=== PATIENT | female | born 1950 | race Caucasian/White ===

== ENCOUNTER 2017-04-07 19:07 | Emergency (ER) | payer MEDICARE, OTHER ==
[~2017-04-07] VITALS: Ht 154.9 cm; Wt 111.4 kg
[~2017-04-07 19:07] MED LIST: /ASCO250TA PO; /AUGM875TA OR; /CELE20CA PO; /LINE60TA PO; /MOM400 PO; /PANT40TA PO; /PREG50CA PO; /WARF25TA OR; ACET65TA OR; ALLO300T OR; ANUSHCSU PR; ASPI81CH3 PO; ASPIRIN PO; ATEN50TA2 OR; BISA10SU30 PR; BISAC5TA PO; CALC600T7 PO; COLA100C2 OR; COLA50CA3 PO; CYCLOBEN PO; FISH1000 PO; FISHCAP PO; KLOR CON PO; LOZOL PO; META48.54 PO; METAXALONE PO; MULTIVIT PO; NORCOBULK PO; OXYCODONE PO; PERC5TAB8 OR; PERC7.5T12 PO; SIMV10TA2 OR; SIMVPOW2 PO; TYLE325T5 PO; VALI5TAB PO; VITACRY3 PO; VITAMIN D; VITAMIN D PO; ZYLO300T OR; [UNRECOGNIZED DRUG - OTHER] PO; [UNRECOGNIZED DRUG - OTHER] PO
[2017-04-07] MEDS ORDERED: ATOR1TAB21 (19:26)
[2017-04-07] MEDS ORDERED: CYMB1CAP4 PO (19:26)
[2017-04-07] MEDS ORDERED: INDA125TA (19:26)
[2017-04-07] MEDS ORDERED: AMOX500C PO (19:26)
[2017-04-07] MEDS ORDERED: BACL10TA2 PO (19:26)
[2017-04-07] MEDS ORDERED: VESI10TA2 (19:26)
[2017-04-07] MEDS ORDERED: NITR50CA2 (19:26)
[2017-04-07 23:01] VITALS: BP 132/68
--- NOTE | 2017-04-08 08:21 | REP ---
Clinical: Pain. Technique: AP view of the pelvis with neutral and frog lateral views of the left hip. Findings: The patient is status post bilateral hip replacement. Age-related changes to the pelvis noted including enthesopathy and osteophyte formation along the iliac wings and spines. Orthopedic hardware appears normal in position. No acute fracture or dislocation is appreciated. Impression: Age-related degenerative changes. No acute fracture or dislocation. Signed by Bird Rashid MD 04/08/2017 08:12 A
== END 2017-04-07 23:02 | disposition home or self-care (01) ==
LOC: M ED 19:07
DX: M25.552 Pain in left hip (principal); I10 Essential (primary) hypertension; E78.00 Pure hypercholesterolemia, unspecified; Z79.2 Long term (current) use of antibiotics; Z79.899 Other long term (current) drug therapy; Z88.2 Allergy status to sulfonamides; Z88.1 Allergy status to other antibiotic agents; Z87.891 Personal history of nicotine dependence

== ENCOUNTER → 2018-10-14 | Outpatient (CLI) | payer MEDICARE, OTHER ==
[~2018-10-14] MED LIST changes: -/CELE20CA PO; -/LINE60TA PO; -/MOM400 PO; -/PANT40TA PO; -/PREG50CA PO; -/WARF25TA OR; +AMOX500C PO; -ANUSHCSU PR; +ATOR1TAB21; +BACL10TA2 PO; +CELE1CAP4 PO; +COUM1TAB18 OR; +CYMB1CAP4 PO; +HYDR1SUP3 PR; +INDA125TA; +LYRI50CA PO; +MILK10SU PO; +NITR50CA34; +PROT1TAB2 PO; +VESI10TA2; +ZYVO100T PO
--- NOTE | 2018-10-14 09:11 | REP ---
Clinical: Preoperative assessment . Comparison: 10/02/2011 . Technique: PA and lateral. Findings: The mediastinum and cardiac silhouette are normal. The lung hernandez are clear and without acute consolidation, effusion, or pneumothorax. The skeletal structures are intact and normal. Impression: 1. No acute cardiopulmonary process. Electronically Signed by Bird Rashid MD 10/14/2018 09:03 A
[2018-10-14 09:34] LABS: BLOOD UREA NITROGEN 17 MG/DL (7-18); CARBON DIOXIDE LEVEL 33 MEQ/L (21-32); CHLORIDE LEVEL 103 MEQ/L (98-107); CREATININE FOR GFR 0.76 MG/DL (0.55-1.30); GLOMERULAR FILTRATION RATE > 60.0 (>45); GLUCOSE, FASTING 113 MG/DL (70-100); POTASSIUM SERUM 4.2 MEQ/L (3.5-5.1); SODIUM LEVEL 141 MEQ/L (136-145)
--- NOTE | 2018-10-14 12:35 | ECGEPIP ---
[facility] Test Date: 2018-10-14 Pat Name: LISA PIERRE Department: Room: - Gender: Female Digital Marketing Specialist: JOSE ROBERTO : 1950 Requested By: Frank Taylor Order Number: [id number] Reading MD: Edwina Marsh Measurements Intervals [place] Rate: 60 P: 18 MD: 154 QRS: 6 QRSD: 98 T: 13 QT: 398 QTc: 398 Interpretive Statements SINUS RHYTHM NORMAL Electronically Signed on 10-14-2018 12:35:19 EDT by Edwina Marsh
== END ==
LOC: M LAB 08:20
PROVIDERS: ATTEND Orthopaedic Surgery
DX: Z01.818 Encounter for other preprocedural examination (principal); M48.02 Spinal stenosis, cervical region; M54.12 Radiculopathy, cervical region

== ENCOUNTER → 2018-11-04 | Outpatient (CLI) | payer MEDICARE, OTHER ==
[~2018-11-04] MED LIST changes: +ALLO10TA PO; +ASPI81TA85 PO; +ATEN50TA2 PO; -ATOR1TAB21; +ATOR1TAB21 PO; +CVS500CA5 PO; -INDA125TA; +INDA125TA PO; +LYRI150C PO; +MAGN250T7 PO; +MULTCAP PO; +PERC5TAB12 PO; +PURE500C5 PO; -VESI10TA2; +VESI10TA2 PO
--- NOTE | 2018-11-08 08:16 | SLEEPCENT ---
DATE OF PROCEDURE: 11/04/2018 ORDERED BY: MENG Holt Nocturnal polysomnography was performed for evaluation of sleep physiology in this patient with a history of excessive somnolence and nonrestorative sleep who has comorbidities of diabetes and hypertension. 7 hours and 21 minutes of data were reviewed. There were 356 minutes of sleep identified. Sleep latency was prolonged 41.5 minutes. Rapid eye movement (REM) latency was more so prolonged at 337 minutes. Sleep architecture showed poor progression with only 1 REM cycle late in the study. Overall sleep efficiency was 82.4%. The electrocardiogram showed a sinus rhythm with an average heart rate of 60 beats per minute. Rate ranged 50-80. Electroencephalogram (EEG) showed mild coarsening in background, no focal events were identified. There was normal waveforms for awake and sleep. There were 79 respiratory events identified of 10 seconds in duration or greater for an apnea-hypopnea index of 13.3. The events were obstructive, not exclusive to sleep stage, more frequent in the supine posture. Arousals from respiratory events occurred 2 times per hour and oxygen desaturations were seen into the upper 80s. There was some minimal background limb EMG activity and snoring was noted over the entire time of the test. IMPRESSION: Obstructive sleep apnea syndrome (G47.33). Apnea-hypopnea index 13.3. RECOMMENDATION: The patient should be encouraged to return to the sleep disorder center for pressure therapy. In the interim, alcohol and sedative avoidance should be practiced and caution exercised during the operation of motor vehicles.
== END ==
LOC: M SLEEP 19:34
PROVIDERS: ATTEND Nurse Practitioner Family
DX: R40.0 Somnolence (principal)

== ENCOUNTER → 2018-11-12 | Outpatient (CLI) | payer MEDICARE, OTHER ==
--- NOTE | 2018-11-15 15:33 | SLEEPCENT ---
DATE OF PROCEDURE: 11/12/2018 ORDERED BY: MENG Holt Nocturnal polysomnography was performed for the titration of pressure therapy in this patient with obstructive sleep apnea syndrome, apnea-hypopnea index of 13.3. For testing, a ResMed Jennifer View full face mask of small size was used, 4 cm of water pressure were applied to the circuit and the lights were extinguished. 7 hours and 47 minutes of data were reviewed. There 280 minutes of sleep identified. Sleep latency was quite prolonged at 136 minuts. REM latency more so prolonged at 287 minutes. Sleep architecture showed poor progression with fragmentation early in the study. Sleep did improve later in the test on optimal pressure therapy. Overall sleep efficiency 61.3% and there was one REM episode late in the test. The electrocardiogram showed a sinus rhythm with an average heart rate of 56 beats per minute. EEG showed normal waveforms for awake and sleep stages. Optimal pressure for palliation of obstructive events was found to be 11 cm of water. There were some activity in the limb leads, particularly early in the study. Limb movement arousal index was 8.1. IMPRESSION Obstructive sleep apnea syndrome (7.33) RECOMMENDATIONS Nightly use of pressure therapy 11 cm of water.
== END ==
LOC: M SLEEP 20:00
PROVIDERS: ATTEND Nurse Practitioner Family
DX: G47.33 Obstructive sleep apnea (adult) (pediatric) (principal)

== ENCOUNTER 2019-01-05 07:16 | Inpatient (IN) | payer MEDICARE, OTHER ==
--- NOTE | 2018-12-27 17:44 | HPE ---
DATE OF ADMISSION: 01/05/2019 ATTENDING PHYSICIAN: Dr. Costello CHIEF COMPLAINT: Neck pain and pain radiating to her right upper extremity. HISTORY: This is a 68-year-old female patient with progressively worsening neck pain and pain radiating to mainly her right upper extremity. She has tried conservative management without improvement. She has had an MRI notable for significant spinal stenosis at 5-6 as well as at 4-5 and 6-7. She has elected for surgery for continued symptoms. She has consented by Dr. Costello for an anterior cervical decompression and fusion at C4-5, C5-6 and C6-7. Medical optimization Dr. Webb and also Dr. Brower from the pulmonary clinic. CURRENT MEDICATIONS: - allopurinol 300 mg one tablet once per day - atenolol 50 mg one tablet once per day - baclofen 10 mg once daily as needed - Cymbalta 20 mg one tablet once per day - indapamide 1.25 mg one tablet twice a day - Klor-Con 20 mEq one tablet twice a day - Lipitor 20 mg one tablet once per day - Lyrica 150 mg one tablet three times a day - VESIcare 10 mg one tablet once per day - aspirin 81 mg one tablet once per day, she will discontinue that 5 days prior to surgery - she takes qsby-ciz-mpwgenx cranberry, fish oil, magnesium, multivitamin, stool softeners and vitamins B, C and D She was counseled to avoid all aspirin and NSAIDs 7-10 days prior to surgery. ALLERGIES: Include SULFA medications, NSAIDs, walnuts, adhesives, and beeswax. MEDICAL CONDITIONS: Include cervical spinal stenosis that is symptomatic as well as Charcot foot, seasonal allergies, arthritis, benign essential tremor, carpal tunnel syndrome, diabetes, gout, hyperlipidemia, hypertension, lumbar radiculopathy, obesity, chronic urinary incontinence. PRIOR SURGERIES: Includes bilateral hip replacements, laminectomy, total hysterectomy, removal of her gallbladder, prior surgery with X-STOP procedure. SOCIAL HISTORY: She does not smoke. She does not use alcohol. She is retired. REVIEW OF SYSTEMS: Denies fevers or chills. Denies chest pain, shortness of breath or cough. Denies difficulty breathing. She has persistent neck pain and pain radiating to her right upper extremity. She has chronic urinary incontinence. Exam today reveals alert, well-nourished, well-developed, female patient. She ambulates with a normal gait. She does use a cane for ambulation due to a prior history of cauda equina syndrome. There is a positive Spurling's to the right upper extremity. Zuniga's is negative. Clonus is negative. Her mood and affect are appropriate. Neck is supple without adenopathy or JVD. The skin is intact. Lungs are clear to auscultation without rales or wheeze. Heart: Regular rate and rhythm. Abdomen: Bowel sounds are present. Current vital signs: Height 61 inches, weight 254 pounds, temperature 98, blood pressure 139/79, respirations 16, heart rate of 62. LABORATORY DATA: Hemoglobin of 13, glucose 113, BUN 17, creatinine 0.76, sodium 141, potassium 4.2. IMPRESSION: Symptomatic cervical spinal stenosis with right upper extremity radicular like symptoms. PLAN: She has consented for an anterior cervical decompression and fusion at C4-5, C5-6 and C6-[address] Costello with the use of VG2 grafts. CONSUELO
[~2019-01-05] VITALS: Ht 154.9 cm; Wt 115.2 kg
[2019-01-05] VITALS (9 sets, daily range): BP systolic 141–149; BP diastolic 69–74; O2SAT 93–94
[~2019-01-05 07:16] MED LIST changes: +B COTAB3 PO; +BACITRACIN PWD 50,000 UNITS VIAL As Ordered ONE; +CelecoXIB (CeleBREX) 100 MG CAP PO ONE; +D MANNOSE PO; +LIDOCAINE W/EPINEPHRINE 1% 20ML VIAL As Ordered ONE; +LR 1,000 ML IV ONE; +PERCOCET 5MG/325MG TAB PO ONE; +POTA20TA6 PO; +THROMBIN SOLN 20,000 UNITS KIT As Ordered ONE; +VITA30004 PO; +VITA500C19 PO; +ceFAZolin SOD 1 GM in D5W MINI-BAG PLUS 50 ML IV ONE; +methylPREDNISolone 500 MG VIAL (J2930) As Ordered ONE
[2019-01-05] MEDS ORDERED: VANCOMYCIN 1000 MG/20 ML VIAL (J3370) As Ordered ONE (08:48)
[2019-01-05] MEDS ORDERED: VANCOMYCIN HCL 1,000 MG, VIAL MATE ADAPTER 1 EACH in D5W 250 ML IV ONE (09:45)
[2019-01-05] MEDS ORDERED: MIDAZOLAM INJ 2 MG/2 ML VIAL (J2250) As Ordered ONE (09:46)
[2019-01-05] MEDS ORDERED: dexameTHASONE 4 MG/ML 1ML VIAL (J1100) As Ordered ONE (09:46)
[2019-01-05] MEDS ORDERED: PROPOFOL 200 MG/20 ML VIAL As Ordered ONE ×2 (09:46→14:35)
[2019-01-05] MEDS ORDERED: LIDOCAINE 2% INJ 100 MG/5 ML SDV (FOR ANES.) As Ordered ONE (09:46)
[2019-01-05] MEDS ORDERED: ONDANSETRON 4MG/2ML VIAL (J2405) As Ordered ONE (09:46)
[2019-01-05] MEDS ORDERED: ROCURONIUM BROMIDE 50 MG/5 ML VIAL As Ordered ONE ×2 (09:46→10:48)
[2019-01-05] MEDS ORDERED: fentaNYL 250 MCG/5 ML INJECTION (J3010) As Ordered ONE (09:46)
[2019-01-05] MEDS ORDERED: GLYCOPYRROLATE INJ 0.2 MG/ML 2 ML VIAL As Ordered ONE (10:37)
[2019-01-05] MEDS ORDERED: ePHEDrine SULFATE 25 MG/5 ML(5MG/ML) SYRINGE As Ordered ONE (11:18)
[2019-01-05] MEDS ORDERED: SUGAMMADEX SODIUM 500 MG/5 ML VIAL (BRIDION) As Ordered ONE (11:42)
--- NOTE | 2019-01-05 12:40 | REP ---
REASON: Anterior cervical discectomy. Single lateral portable view of the cervical spine was obtained in the operative suite during anterior cervical discectomy. There is a probe seen in the intervertebral disc space at the C4-5 level. Electronically Signed by Christiano Farooq DO 01/05/2019 03:42 P
--- NOTE | 2019-01-05 15:18 | CR.PDOC ---
General Date of Consultation: Jan 05, 2019 Referring Provider: Frank Costello MD Attending Physician: PA DE LA PAZ MD Consultation REASON FOR CONSULTATION/CHIEF COMPLAINT: [ medical management]. HISTORY OF PRESENT ILLNESS: [68 years old female with past medical history of multiple medical problems including cervical spine spinous stenosis chocolate Cruzito energy arthritis. Benign essential tremors Coppertone syndrome, diabetes mellitus, gout, hyperlipidemia, hypertension, lumbar radiculopathy, obesity, chronic urinary incontinence was scheduled for anterior cervical decompression and fusion of C4-5, C5-6 and, C6-7. Will be called in for medical management. Patient offers no new complaints. The present time]. ALLERGIES: Please see below. HOME MEDICATIONS: Please see below. PAST MEDICAL HISTORY: Cervical spinal stenosis chocolate fluid seen allergies, arthritis, benign essential tremors Coppertone syndrome, diabetes mellitus, gout, hyperlipidemia, hypertension, lumbar radiculopathy, obesity, chronic urinary incontinence PAST SURGICAL HISTORY: Bilateral hip replacement, laminectomy, total hysterectomy, cholecystectomy FAMILY HISTORY: Father: [Noncontributory] Mother: [Noncontributory] Siblings: [Noncontributory] Children: [Noncontributory] Hereditary Diseases: [None] Unexpected deaths due to medical reasons: [None] SOCIAL HISTORY: Marital status and/or living arrangements: Children: Employment: [Not applicable] Tobacco use:[Never smoked] ETOH: [No] Illicit drug use: IV drug use: [No] Other relevant social factors: [None] REVIEW OF SYSTEMS: CONSTITUTIONAL: . HEENT: . CARDIOVASCULAR: [No chest pain, shortness of breath, palpitations, wheezing]. RESPIRATORY: [Wheezing, shortness of breath]. GENITOURINARY: [No dysuria, frequency]. MUSCULOSKELETAL: [No aches and pains]. GASTROINTESTINAL: [, No nausea, vomiting, diarrhea]. SKIN: [No rash]. NEUROLOGICAL: [Motor or focal sensory, weakness]. PSYCHIATRIC: [None]. ENDOCRINE: [No complaints. But history of diabetes]. HEMATOLOGIC/LYMPHATIC: [No complaints]. ALLERGIC/IMMUNOLOGIC: [No complaints]. PHYSICAL EXAMINATION: VITAL SIGNS: Please see below. GENERAL APPEARANCE: [Awake, alert, oriented, in no apparent distress]. HEENT: [PERRLA, XRT, muscle intact]. RESPIRATORY: [Clear to A&P]. CARDIOVASCULAR: [S1, S2, regular]. ABDOMEN: [, Soft, nontender, bowel sound present]. EXTREMITIES: [no Clubbing, cyanosis, edema]. NEUROLOGICAL: [Intact]. PSYCHIATRIC: [Normal]. LABORATORY DATA: Please see below. ASSESSMENT/PLAN: Status post anterior cervical decompression and fusion of C4-5, C5-6 and, C6-7 Hypertension Hyperlipidemia Urinary incontinence Benign essential tremor Gout Obesity Vital Signs/I&O Vital Signs Date Time Temp Pulse Resp B/P (MAP) Pulse Ox O2 Delivery O2 Flow Rate FiO2 01/05/19 08:44 20 01/05/19 08:32 96.8 60 144/77 (99) 97 Laboratory Data Labs 24H Laboratory Tests 2 01/05/19 08:12: Bedside Glucose (Misc Panel) 123H Allergies Coded Allergies: enalapril (Verified Allergy, Unknown, dry cough, 10/27/18) gabapentin (Verified Allergy, Unknown, feet and leg swelling, 10/27/18) NSAIDS (Non-Steroidal Anti-Inflamma (Verified Adverse Reaction, Intermediate, HX STOMACH PERFORATION, 10/27/18) Sulfa (Sulfonamide Antibiotics) (Verified Adverse Reaction, Intermediate, flu symptoms, 10/27/18) walnut (Verified Adverse Reaction, Intermediate, RAW FEELING IN MOUTH, 10/27/18) Home Medications Scheduled Allopurinol (Allopurinol) 100 Mg Tablet, 3 TAB PO DAILY for 30 Days, #30 (Reported) Ascorbic Acid (Vitamin C) 500 Mg Capsule.er, 1 CAP PO DAILY for 30 Days, #30 (Reported) Aspirin (Aspir 81) 81 Mg Tablet.dr, 81 MG PO DAILY for pain for 30 Days, #30 (Reported) Atenolol (Atenolol) 50 Mg Tablet, 50 MG PO DAILY for 30 Days, #30 (Reported) Atorvastatin Calcium (Atorvastatin Calcium) 20 Mg Tab, 20 MG PO DAILY, (Reported) Baclofen (Baclofen) 10 Mg Tab, 10 MG PO TID, (Reported) Cholecalciferol (Vitamin D3) (Vitamin D3) 3,000 Unit Tablet, 1 TAB PO DAILY for 30 Days, #30 (Reported) Cranberry Fruit Extract (Cranberry) 500 Mg Capsule, 500 MG PO BID for 30 Days, #60 (Reported) Duloxetine HCl (Cymbalta) 20 Mg Cap, 20 MG PO BID, (Reported) Indapamide (Indapamide) 1.25 Mg Tab, 2 TABS PO DAILY, #2 (Reported) Magnesium Oxide (Magnesium) 250 Mg Tablet, 250 MG PO DAILY for 30 Days, #30 (Reported) Multivitamin (Multivitamins) 1 Each Capsule, 1 CAP PO DAILY, #30 (Reported) [place]-3 Fatty Acids/Fish Oil (Fish Oil 1,000 mg Capsule) 1 Each Capsule, 1,000 MG PO BID, #3 (Reported) 2 caps in AM, one at night Potassium Chloride (Potassium Chloride) 20 Meq Tab.er.prt, 1 TAB PO BID for 30 Days, #60 (Reported) Pregabalin (Lyrica) 150 Mg Capsule, 150 MG PO QAM, (Reported) Pregabalin (Lyrica) 150 Mg Capsule, 2 CAP PO QPM for 30 Days, #60 (Reported) Solifenacin Succinate (Vesicare) 10 Mg Tab, 10 MG PO DAILY, (Reported) Vitamin B Complex (Vitamin B Complex) 1 Each Tablet, 1 TAB PO QHS for 30 Days, #30 (Reported) [D mannose] , 1,000 MG PO BID, (Reported) Scheduled PRN Oxycodone HCl/Acetaminophen (Percocet 5-325 mg Tablet) 1 Each Tablet, 1 TAB PO QIDP PRN for pain for 30 Days, #120 (Reported) PA DE LA PAZ MD Jan 05, 2019 15:17
[2019-01-05] MEDS ORDERED: LR 1,000 ML IV SCH (15:30)
[2019-01-05] MEDS ORDERED: fentaNYL 100 MCG/2 ML INJECTION (J3010) IV PRN (15:30)
[2019-01-05] MEDS ORDERED: PERCOCET 5MG/325MG TAB PO PRN ×2 (15:30→16:15)
[2019-01-05] MEDS ORDERED: ONDANSETRON 4MG/2ML VIAL (J2405) IV PRN (15:30)
[2019-01-05] MEDS ORDERED: BACLOFEN 10 MG TAB PO PRN (16:00)
[2019-01-05] MEDS ORDERED: D5W/LR 1,000 ML IV SCH (16:00)
[2019-01-05] MEDS ORDERED: HYDROMORPHONE HCL 0.5 MG/ 0.5 ML SYRINGE (J1170 PER 1) IV PRN ×2 (16:00)
--- NOTE | 2019-01-05 16:03 | REP ---
HISTORY: Status post anterior cervical discectomy. COMPARISON: Priors reviewed. Single swimmer's view shows an anterior internal fixation plate from C4 to C7 and seen extremely limited due to overlying soft tissue and osseous structures. Electronically Signed by Christiano Farooq DO 01/05/2019 05:58 P
[2019-01-05] MEDS ORDERED: PROMETHAZINE INJ 25 MG/ML VIAL (J2550) IV PRN (16:15)
[2019-01-05] MEDS: PERCOCET 5MG/325MG TAB PO PRN ×2 (17:15→21:56)
[2019-01-05] MEDS: ALLOPURINOL 300 MG TAB PO SCH (18:45)
[2019-01-05] MEDS ORDERED: ATORVASTATIN 20 MG TAB PO SCH (21:00)
[2019-01-05] MEDS ORDERED: SOLIFENACIN 5 MG TAB PO SCH (21:00)
[2019-01-05] MEDS: DULoxetine 30 MG CAP (CYMBALTA) PO SCH (21:55)
[2019-01-05] MEDS: PREGABALIN 75 MG CAP(LYRICA) PO SCH (21:55)
[2019-01-05] MEDS: VANCOMYCIN HCL 1,000 MG, VIAL MATE ADAPTER 1 EACH in D5W 250 ML IV SCH (21:59)
[2019-01-06 01:00] VITALS: O2SAT 94
[2019-01-06] MEDS: PERCOCET 5MG/325MG TAB PO PRN ×3 (03:19→14:55)
[2019-01-06 06:53] VITALS: BP 144/63
[2019-01-06 06:55] LABS: HEMATOCRIT 36.2 % (36.0-47.0); HEMOGLOBIN 11.8 g/dl (12.0-15.5); MEAN CORPUSCULAR HGB CONC 32.6 g/dl (32.0-36.5); PLATELET COUNT, AUTOMATED 200 10^3/uL (150-450); RED BLOOD COUNT 3.81 10^6/uL (4.00-5.40); WHITE BLOOD COUNT 9.3 10^3/uL (4.0-10.0)
[2019-01-06 07:26] LABS: ALBUMIN 3.2 GM/DL (3.2-5.2); ALT/SGPT 36 U/L (12-78); BILIRUBIN,TOTAL 0.3 MG/DL (0.2-1.0); BLOOD UREA NITROGEN 18 MG/DL (7-18); CALCIUM LEVEL 8.5 MG/DL (8.8-10.2); CARBON DIOXIDE LEVEL 32 MEQ/L (21-32); CHLORIDE LEVEL 101 MEQ/L (98-107); CREATININE FOR GFR 0.76 MG/DL (0.55-1.30); GLOMERULAR FILTRATION RATE > 60.0 (>45); GLUCOSE, FASTING 119 MG/DL (70-100); MAGNESIUM LEVEL 2.2 MG/DL (1.8-2.4); POTASSIUM SERUM 3.9 MEQ/L (3.5-5.1); SODIUM LEVEL 138 MEQ/L (136-145); TOTAL PROTEIN 6.7 GM/DL (6.4-8.2)
[2019-01-06] MEDS ORDERED: ATENOLOL 50 MG TAB PO SCH (09:00)
[2019-01-06] MEDS ORDERED: ASPIRIN 81 MG CHEW TABLET PO SCH (09:00)
[2019-01-06] MEDS: METAMUCIL (PSYLLIUM) PACKET PO SCH ×2 (09:00→09:37)
[2019-01-06] MEDS ORDERED: INDAPAMIDE 1.25MG TABLET PO SCH (09:00)
[2019-01-06] MEDS ORDERED: POTASSIUM CHLORIDE 10 MEQ SR TABLET PO SCH (09:00)
[2019-01-06] MEDS: ALLOPURINOL 300 MG TAB PO SCH (09:36)
[2019-01-06] MEDS: DULoxetine 30 MG CAP (CYMBALTA) PO SCH (09:37)
[2019-01-06] MEDS: PREGABALIN 75 MG CAP(LYRICA) PO SCH (09:37)
[2019-01-06 09:38] VITALS: BP 144/63
[2019-01-06] MEDS: VANCOMYCIN HCL 1,000 MG, VIAL MATE ADAPTER 1 EACH in D5W 250 ML IV SCH (09:38)
--- NOTE | 2019-01-06 09:59 | IPNPDOC ---
Subjective Date Seen The patient was seen on 01/06/19. Subjective Chief Complaint/HPI Ju comfortable in no distress. C-collar in place possible discharge today by orthopedic General: Denies: ROS Unobtainable, Chills, Night Sweats, Fatigue, Malaise, Normal Appetite, Other Symptoms Constitutional: Denies: Chills, Fever, Malaise, Night Sweats, Weakness, Fatigue, Weight Loss, Lethargy, Other Eyes: Denies: Pain, Vision change, Conjunctivae inflammation, Eyelid inflammation, Redness, Other ENT: Denies: Head Aches, Ear Pain, Dysphagia, Sinus Congestion, Post Nasal Drip, Sore Throat, Epistaxis, Other Symptoms Skin: Denies: Rash, Lesions, Jaundice, Bruising, Itching, Dry, Breakdown, Nail Changes, Other Pulmonary: Denies: Dyspnea, Cough, Pleuritic Chest Pain, Other Symptoms Cardiovascular: Denies: Chest Pain, Palpitations, Orthopnea, Paroxysmal Noc. Dyspnea, Edema, Lt Headedness, Other Symptoms Gastrointestinal: Denies: Nausea, Vomiting, Abdominal Pain, Diarrhea, Constipation, Melena, Hematochezia, Other Symptoms Genitourinary: Denies: Dysuria, Frequency, Incontinence, Hematuria, Retention, Other Symptoms Hematologic: Denies: Bruising, Bleeding Excessively, Petecchia, Purpura, Enlarged Lymph Nodes, Other Hematologic Endocrine: Denies: Polydipsia, Polyphagia, Polyuria, Heat Intolerance, Cold Intolerance, Other Endocrine Sx Musculoskeletal: Denies: Neck Pain, Back Pain, Shoulder Pain, Arm Pain, Hand Pain, Leg Pain, Foot Pain, Joint Pain, Muscle Pain, Spasms, Other Symptoms Neurological: Reports: Other Symptoms (c-collar in place); Denies: Weakness, Numbness, Incoordination, Change in speech, Confusion, Seizures Psych: Denies: Mood Normal, Anxiety, Depression, Memory Issues, Thoughts of Self Harm, Anger, Thoughts of Harming Other, Other Psych Objective Physical Examination General Exam: Positive: Alert, Cooperative Eye Exam: Positive: PERRLA, Conjunctiva & lids normal ENT Exam: Positive: Atraumatic, Mucous membr. moist/pink Neck Exam: Positive: Supple Chest Exam: Positive: Clear to auscultation, Normal air movement Heart Exam: Positive: Rate Normal, Normal S1 Abdomen Exam: Positive: Normal bowel sounds, Soft Skin Exam: Positive: Nl turgor and temperature Neuro Exam: Positive: Strength at 5/5 X4 ext Psych Exam: Positive: Mental status NL, Mood NL, Oriented x 3 Assessment /Plan Problems (1) S/P cervical spinal fusion Status: Acute Problem Text: Status post cervical spine fusion Pain management as per orders PT in progress Possible discharge home today (2) HTN (hypertension) Status: Chronic Response to Treatment: Stable Problem Text: Continue home meds (3) Hyperlipidemia Status: Chronic Response to Treatment: Stable Problem Text: Continue home meds Plan/VTE VTE Prophylaxis Ordered?: Yes VS, I&O, 24H, Fishbone Vital Signs/I&O Vital Signs Date Time Temp Pulse Resp B/P (MAP) Pulse Ox O2 Delivery O2 Flow Rate FiO2 01/06/19 09:38 73 144/63 01/06/19 09:37 18 01/06/19 06:53 96.6 96 2.0 01/06/19 01:00 Nasal Cannula I&O- Last 24 Hours up to 6 AM 01/06/19 06:00 Intake Total 2790 ml Output Total 1775 ml Balance 1015 ml Laboratory Data 24H LABS Laboratory Tests 2 01/05/19 16:40: Bedside Glucose (Misc Panel) 163H 01/06/19 06:12: Nucleated Red Blood Cells % (auto) 0.0, Anion Gap 5L, Glomerular Filtration Rate > 60.0, Blood Urea Nitrogen 18, Creatinine 0.76, Sodium Level 138, Potassium Level 3.9, Chloride Level 101, Carbon Dioxide Level 32, Calcium Level 8.5L, Aspartate Amino Transf (AST/SGOT) 20, Alanine Aminotransferase (ALT/SGPT) 36, Alkaline Phosphatase 57, Total Bilirubin 0.3, Total Protein 6.7, Albumin 3.2, M agnesium Level 2.2, Albumin/Globulin Ratio 0.91L CBC/BMP Laboratory Tests 01/06/19 06:12 Red Blood Count 3.81 L, Mean Corpuscular Volume 95.0, Mean Corpuscular Hemoglobin 31.0, Mean Corpuscular Hemoglobin Concent 32.6, Red Cell Distribution Width 13.2, Calcium Level 8.5 L, Aspartate Amino Transf (AST/SGOT) 20, Alanine Aminotransferase (ALT/SGPT) 36, Alkaline Phosphatase 57, Total Bilirubin 0.3, Total Protein 6.7, Albumin 3.2 PA DE LA PAZ MD Jan 06, 2019 09:59
[2019-01-06 14:00] VITALS: BP 132/56
--- NOTE | 2019-01-09 15:02 | RO ---
DATE OF PROCEDURE: 01/05/2019 PREOPERATIVE DIAGNOSES: Cervical spinal stenosis at C4-5, 5-6, 6-7 with primarily right upper extremity radiculopathy. Preexisting neurologic deficits. Morbid obesity. POSTOPERATIVE DIAGNOSIS: Cervical spinal stenosis at C4-5, 5-6, 6-7 with primarily right upper extremity radiculopathy. Preexisting neurologic deficits. Morbid obesity. PROCEDURE: Include the following: Anterior cervical decompression and fusion at C4-5 including endplate preparation and removal of ligamentum flavum and debridement of uncinate processes to decompress the thecal sac and nerve roots, additional level C5-6, additional level C6-7, use of structural autograft for spine surgery at C5-6, C4-5 and C6- 7, application of anterior cervical instrumentation for spine surgery C4, 5, 6, 7 plate instrumentation. A 22 modifier will be amended to these codes because the patient's body mass index exceeding 56, significantly increased the time and level of involvement in this case by approximately 130% from what we would typically expect. SURGEON: Frank Costello MD FORENSIC LOCKSMITH: Parveen Hernandez, physician materials assistant. ANESTHESIA: General endotracheal. ESTIMATED BLOOD LOSS: Was less than 120 mL replaced with crystalloid. COMPLICATIONS: No complications. INDICATIONS: A long history of intractable neck discomfort and right upper extremity radicular symptoms. The patient has a complex history including a history of cauda equina syndrome which produced neurologic deficit permanent in both lower extremities. Consents were reviewed in detail with the patient including a raghav discussion of material risks and potential benefits of the operative procedure including but not limited to pain, failure, infection, bleeding, blood loss, incomplete relief of symptoms, paralysis, swallowing trouble, hoarseness, numbness, tingling, infection and other problems. The patient agrees to proceed. COMPONENTS USED: Include the DePuy SKYLINE plate system size 42 mm plate, the appropriate 14 mm screws at each level, and structural grafts size 5 x 7 at the C4-5 level, size 4 x 6 at C5-6, size 4 x 6 at C6-7. OPERATIVE COURSE: Identified in the holding area, site and side verified, brought to the operating room. Once anesthesia was administered, she was carefully positioned for exposure of the cervical spine for an anterior approach. Bump between shoulder blades. Shoulders were taped at the side gently. Head halter traction was applied. Positioning this patient required more than 100% additional time because of body habitus with a BMI of 47. Eventually, I and the shop director were comfortable with the patient's positioning and she was able to be sterilely prepped and draped in the usual fashion. I stood on the patient's right side and Mr. Hernandez stood on the patient's left side. I outlined the incision using a marking pen and we infiltrated with 1% lidocaine with epinephrine. Time out was accomplished. Incision was made with a 10 blade knife. The total length of the incision was about 4 cm long by the end of the case. It was a bit larger because of the shear size of the patient's neck. The dissection continued through subcuticular tissues, which were somewhat fibrotic, to the surface of platysma. The platysma was elevated and divided perpendicular to its fibers using tenotomy scissors as well as bipolar cautery. We were able to locate the sternocleidomastoid and the omohyoid. The dissection continued superiorly to the omohyoid and medial to the sternocleidomastoid. I tied off two large branches of the external jugular vein in the course of this exposure. Next, the dissection continued to be tedious and she required sharp dissection throughout. There was no blunt dissection here because of the fibrotic nature of the patient's soft tissue, unfortunately. The carotid sheath was identified and protected laterally. The dissection continued to the prevertebral fascia which was elevated in several leaves, Mr. Hernandez retracting them using an S retractor so that I could expose annulus. We placed a bayonet spinal needle at the C4-5 level and then we obtained a cross-table lateral x-ray to verify our levels. Next, once this was accomplished the dissection continued inferiorly exposing C5-6 as well as the C6-7, C6-7 was quite collapsed. The longus coli was elevated medially bilaterally. Next, once this was accomplished, distraction pins were placed at the C4-5 level. The C4-5 level was significantly mobile. I placed the shadow line retractor. We required 55 and 65 mm blades, that is 6.5 cm blades, because of the patient's high body mass index. Next, we distracted across C4-5 and placed shadow line retractors retracting the soft tissues of the neck medial to lateral. I removed osteophyte formation using Reilly-Rondon's and I further opened the annulus using an 11 blade. I removed disc material using pituitaries down to the posterior longitudinal ligament. I utilized curved curettes to remove additional cartilaginous endplate and then, I was able to use the oval bur to implement the endplate preparation, complete the discectomy, uncinate process was flattened. A significant portion of the corpus was removed, but not quite the 50% required for a partial corpectomy here. The dissection continued exposing the posterior longitudinal ligament. I utilized curved curettes to elevate posterior to the longitudinal ligament and then I utilized two Kerrison's to remove posterior longitudinal ligament exposing the thecal sac. Next, irrigation was accomplished, rasps were utilized through a size 5 x7, 5 x 7 sound utilized, 5 x 7 VG2 structural graft was then implanted in the usual fashion, tamped into place using the tamp. Next, I removed distraction pin and plugged the hole with wax at C4. We then subluxed the Shadow-Line retractor to the 5-6 level, placed distraction pins at 5-6. Again, we required the long 6.5 cm blades to expose annulus because of the patient's large body habitus. Annulus opened using Reilly-Rondon as well as #11 blade. I removed the 5-6 disc material. Used curettes to further remove cartilaginous endplate and oval bur to further contour the endplates and uncinate processes. Elevated the posterior longitudinal ligament with curettes and removed it using #1 and #2 Kerrison's exposing thecal sac and decompressing it significantly. The wound was inspected. Irrigation was accomplished. Rasps were utilized, 4 x 6 rasp at the C5-6 level, followed by 4 x 6 sound. This fit appropriately. I had significantly distracted at least 3 mm where there was near complete collapse. I was able to implant the VG2 structural graft. Once this was accomplished, distraction pin was removed from 5, hole was packed with wax, and we turned our attention to the C6-7 level. We distracted across C6-7, which was completely collapsed. It did move somewhat when we placed distraction pins however. We placed the Shadow-Line retractor again using extra long blades. I utilized Reilly-Rondon's to remove disc osteophyte complex and the #11 blade to open disc annulus complex, followed by pituitaries to remove additional disc material and curved curettes to remove cartilaginous endplate. Dissection continued using the oval bur squaring the endplates, removing the uncinate processes or debriding them and exposing the posterior longitudinal ligament. I able to elevate that using curved curettes. Used #1 and #2 Kerrison's to further remove the posterior longitudinal ligament exposing the thecal sac and confirmed the decompression there. Irrigation was accomplished. Rasps were utilized through size 4 x 6. Size 4 x 6 sound was utilized and I implanted a size 4 x 6 VG2 graft. It was tamped into place. I removed the distractor pins, plugged the holes with wax, and then I utilized the oval bur. Mr. Hernandez utilized S retractors to help expose. I utilized the oval bur to further contour the intravertebral columns o receive the three-level plate. We sized different plates, selected for a size 42, which seemed to fit appropriately. I then drilled with the soft tissue protector and a 12 mm drill and placed 14 mm x 4 mm screws, the standard screws at C4, 5, 6, and segment C7. I engaged the locking device and we obtained a cross-table lateral x-ray to verify plate placement. We actually obtained a couple of cross-table lateral x-rays but were not able to visualize the whole plate due to body habitus. We were able to visualize the C4 level to verify that we started at the correct level. Next, irrigation accomplished. All retractors had been removed. Platysma reapproximated using interrupted stitch, deep dermis with interrupted stitch. Dermabond utilized on skin. The cervical collar was applied. The patient was extubated and moved to the recovery room in good condition. For further details, please refer to the medical record. Edited 01/09/2019 @ 1504 [facility]
== END 2019-01-06 16:30 | disposition home or self-care (01) | DRG 472 ==
LOC: M OR 07:16 → M MS5PR 16:25
PROVIDERS: ADMIT Orthopaedic Surgery; ATTEND Orthopaedic Surgery
PROC: 00NW0ZZ Release Cervical Spinal Cord, Open Approach (ICD-10-PCS; 2019-01-05)
PROC: 01N10ZZ Release Cervical Nerve, Open Approach (ICD-10-PCS; 2019-01-05)
PROC: 0RG2070 Fusion of 2 or more Cervical Vertebral Joints with Autologous Tissue Substitute, Anterior Approach, Anterior Column, Open Approach (ICD-10-PCS; principal; 2019-01-05 09:10)
DX: M48.02 Spinal stenosis, cervical region (principal); Z68.42 Body mass index [BMI] 45.0-49.9, adult; G83.4 Cauda equina syndrome; J30.2 Other seasonal allergic rhinitis; G25.0 Essential tremor; E11.9 Type 2 diabetes mellitus without complications; M10.9 Gout, unspecified; M54.12 Radiculopathy, cervical region; E78.5 Hyperlipidemia, unspecified; G47.33 Obstructive sleep apnea (adult) (pediatric); I10 Essential (primary) hypertension; M54.16 Radiculopathy, lumbar region; E66.01 Morbid (severe) obesity due to excess calories; R32 Unspecified urinary incontinence; Z79.82 Long term (current) use of aspirin; Z79.899 Other long term (current) drug therapy; Z96.643 Presence of artificial hip joint, bilateral; Z90.49 Acquired absence of other specified parts of digestive tract; Z90.710 Acquired absence of both cervix and uterus; Z98.49 Cataract extraction status, unspecified eye